=== PATIENT | female | born 1980 | race African-American/Black ===

== ENCOUNTER → 2021-02-06 | Outpatient (CLI) | payer MEDICAID ==
[~2021-02-06] VITALS: Ht 160 cm; Wt 124.7 kg
== END | disposition home or self-care (01) ==
LOC: Rad HDHVI 14:00
PROVIDERS: ATTEND Internal Medicine
DX: I10 Essential (primary) hypertension (principal); R07.9 Chest pain, unspecified; R60.0 Localized edema; R63.8 Other symptoms and signs concerning food and fluid intake; Z82.49 Family history of ischemic heart disease and other diseases of the circulatory system
CPT/HCPCS: 78452; 93017; 96374; A9500